=== PATIENT | male | born 1980 | race African-American/Black ===

== ENCOUNTER 2019-05-07 11:36 | Emergency (ER) | payer BC ==
[2019-05-07 11:56] VITALS: BP 142/84
--- NOTE | 2019-05-07 13:36 | UC ---
Throat Pain/Nasal Wade HPI - HPI Summary HPI Summary: Sore throat for 3 days, denies any fever or chills. No nausea vomiting or diarrhea. - History of Current Complaint Chief Complaint: UCGeneralIllness Stated Complaint: SORE THROAT Time Seen by Provider: 05/07/19 13:32 Hx Obtained From: Patient Onset/Duration: Gradual Onset Severity: Mild Pain Intensity: 10 Cough: None Associated Signs & Symptoms: Positive: Nasal Discharge - Allergies/Home Medications Allergies/Adverse Reactions: Allergies Allergy/AdvReac Type Severity Reaction Status Date / Time No Known Allergies Allergy Verified 05/07/19 11:51 Home Medications: Home Medications NK [No Home Medications Reported] 05/07/19 [History Confirmed 05/07/19] PMH/Surg Hx/FS Hx/Imm Hx Previously Healthy: Yes - Surgical History Surgical History: Yes Surgery Procedure, Year, and Place: cyst removed - Family History Known Family History: Negative: Cardiac Disease, Hypertension, Diabetes - Social History Alcohol Use: Occasionally Substance Use Type: None Substance Use Comment - Amount & Last Used: sometimes Smoking Status (MU): Never Smoked Tobacco Review of Systems All Other Systems Reviewed And Are Negative: Yes ENT: Positive: Sore Throat Is Patient Immunocompromised?: No Physical Exam Triage Information Reviewed: Yes Appearance: Well-Appearing, No Pain Distress, Well-Nourished Vital Signs: Initial Vital Signs Temp 99.2 F 05/07/19 11:52 Pulse 65 05/07/19 11:52 Resp 16 05/07/19 11:52 BP 142/84 05/07/19 11:52 Pulse Ox 99 05/07/19 11:52 Vital Signs Reviewed: Yes Eyes: Positive: Conjunctiva Clear ENT: Positive: Pharyngeal erythema - Minimal pharyngeal erythema,, TMs normal, Uvula midline Neck: Positive: Supple, Nontender, No Lymphadenopathy Respiratory: Positive: Lungs clear, Normal breath sounds, No respiratory distress, No accessory muscle use Cardiovascular: Positive: RRR, No Murmur, Pulses Normal, Brisk Capillary Refill Musculoskeletal Exam: Normal Neurological Exam: Normal Psychological Exam: Normal Skin Exam: Normal Throat Pain/Nasal Course/Dx - Course Course Of Treatment: Rapid strep test was negative. Patient can do warm saltwater gargles, throat lozenges, Tylenol every 4 hours or ibuprofen every 8 hours for fever or pain. - Differential Dx/Diagnosis Provider Diagnosis: Pharyngitis Discharge ED - Sign-Out/Discharge Documenting (check all that apply): Patient Departure All imaging exams completed and their final reports reviewed: No Studies - Discharge Plan Condition: Good Disposition: HOME Patient Education Materials: Pharyngitis (ED) Referrals: No Primary Care Phys,NOPCP [Primary Care Provider] - [facility] [Outside] Additional Instructions: Increase fluids, throat lozenges as needed, may alternate Tylenol every 4 hours and Motrin every 8 hours for pain or fever. Follow-up with your primary care provider or [facility] if no improvement in 3 or 4 days. - Billing Disposition and Condition Condition: GOOD Disposition: Home
== END 2019-05-07 13:44 | disposition home or self-care (01) ==
LOC: UCEAST 11:36
DX: J02.9 Acute pharyngitis, unspecified (principal)
CPT/HCPCS: 87651; 99211; G0463